=== PATIENT | male | born 1935 | race Hispanic/Latino ===

== ENCOUNTER 2018-12-19 00:54 | Day surgery (SDC) | payer OTHER ==
[2018-12-17 09:38] LABS: BASOPHILS % (AUTO) 0.9 % (0.0-5.0); EOSINOPHILS % (AUTO) 3.8 % (0.0-8.0); HEMATOCRIT 43.2 % (42-54); MEAN CORPUSCULAR HEMOGLOBIN 32.7 pg (27.0-33.0); MEAN CORPUSCULAR HGB CONC 33.3 g/dL (32.0-36.0); MEAN CORPUSCULAR VOLUME 98.2 fL (79-99); NEUTROPHILS % (AUTO) 63.3 % (40.0-77.0); PLATELET COUNT (AUTO) 177 K/uL (130-400); RED CELL DISTRIBUTION WIDTH 13.1 % (11.0-15.5); WHITE BLOOD COUNT (AUTO) 5.9 K/uL (4.8-10.8)
[2018-12-17 09:45] VITALS: BP 117/63
[2018-12-17 09:46] LABS: CREATININE 0.7 mg/dL (0.5-1.5); POTASSIUM 3.7 mmol/L (3.5-5.1)
[2018-12-17 09:48] LABS: INR 1.09 (0.85-1.15); PARTIAL THROMBOPLASTIN TIME 31.3 SEC (26.3-35.5); PROTHROMBIN TIME 11.4 SEC (9.6-11.6)
--- NOTE | 2018-12-17 10:30 | NUR ---
UPDATE GIVEN TO PATIENTS AND DAUGHTER ON PT STILL HAVING PROCEDURE. BOTH VERBALIZED UNDERSTANDING.
[~2018-12-19] VITALS: Ht 162.6 cm; Wt 70.9 kg
[2018-12-19] VITALS (9 sets, daily range): BP systolic 105–122; BP diastolic 53–72
[~2018-12-19 00:54] MED LIST: APIX5TAB PO; ATOR10 PO; CYAN200017 PO; LORA10TA7 PO; LUTE1CAP3 PO; METO50TA18 PO; NITR0.4T50 SL; NONI PO; OMEP20CA10 PO; TAMS0.4C32 PO; [UNRECOGNIZED DRUG - OTHER] PO
[2018-12-19] MEDS ORDERED: SODIUM CHLORIDE 0.9% 1000ML 1,000 ML IV ONE (06:13)
[2018-12-19] MEDS ORDERED: HEPARIN SODIUM 1000UNIT/ML 10ML VIAL ONE (07:25)
[2018-12-19] MEDS ORDERED: LIDOCAINE HCL 2% 20ML ONE (07:25)
--- NOTE | 2018-12-19 07:28 | NUR ---
TO COMMUNICATIONS EDITOR PT TAKEN TO COMMUNICATIONS EDITOR VIA BED BY GIACOMO YANEZ. PT STABLE.
[2018-12-19] MEDS ORDERED: METO50TA18 PO (07:30)
[2018-12-19] MEDS ORDERED: MIDAZOLAM HCL 1 MG/ML 2ML VIAL ONE ×3 (07:56→09:10)
[2018-12-19] MEDS ORDERED: MEPERIDINE-PF 25 MG/ML SYG ONE ×3 (07:56→09:10)
[2018-12-19] MEDS ORDERED: AMIODARONE HCL 50 MG/ML 3 ML VIAL ONE (08:51)
--- NOTE | 2018-12-19 12:00 | NUR ---
NOTE PT AWAKE ALERT. TOLERATING ORAL FLUIDS WELL.
--- NOTE | 2018-12-19 13:00 | NUR ---
DIET PT TOLERATING DIET WELL, ASSISTED BY .
--- NOTE | 2018-12-19 13:15 | NUR ---
ACTIVITY PT ASSISTED TO BATHROOM, AMBULATED WITHOUT ANY PROBLEMS, VOIDED X1. CATH SITE REMAINS SOFT, DRESSING DRY AND INTACT, NO OOZING NO HEMATOMA NOTED.
--- NOTE | 2018-12-19 13:30 | NUR ---
DISCHARGE PT DISCHARGED VIA WHEELCHAIR WITH AND DAUGHTER IN LAW. PT STABLE. NO COMPLAINTS MADE. NOT IN ANY APPARENT DISTRESS. DISCHARGE INSTRUCTIONS GIVEN TO . ALSO DEMONSTRATED TO ON HOW TO MONITOR CATH SITE FOR BLEEDING, HEMATOMA, APPLY DIRECT PRESSURE AND CALL 911. VERBALIZED UNDERSTANDING.
== END 2018-12-19 13:30 | disposition home or self-care (01) ==
LOC: DAH 00:54
PROVIDERS: ATTEND Internal Medicine Cardiovascular Disease
DX: I48.3 Typical atrial flutter (principal); I48.91 Unspecified atrial fibrillation; Z79.82 Long term (current) use of aspirin; Z79.899 Other long term (current) drug therapy; Z98.890 Other specified postprocedural states; I25.10 Atherosclerotic heart disease of native coronary artery without angina pectoris; Z95.1 Presence of aortocoronary bypass graft; Z95.5 Presence of coronary angioplasty implant and graft; G47.33 Obstructive sleep apnea (adult) (pediatric); Z79.01 Long term (current) use of anticoagulants
CPT/HCPCS: 36415; 80048; 85025; 85610; 85730; 93005; 93613; 93621; 93653; A4649; C1730 ×2; C1732; C1894 ×2; J0282; J1644 ×2; J2175 ×3; J2250 ×3; J3490; J7030; 99156; 99157

== ENCOUNTER → 2019-03-31 | Outpatient (CLI) | payer OTHER ==
[~2019-03-31] MED LIST changes: +OMEP-50 PO; -OMEP20CA10 PO
== END | disposition home or self-care (01) ==
LOC: RAH 11:19
PROVIDERS: ATTEND Psychiatry & Neurology Neurology
DX: J32.2 Chronic ethmoidal sinusitis (principal); F03.90 Unspecified dementia, unspecified severity, without behavioral disturbance, psychotic disturbance, mood disturbance, and anxiety; J32.0 Chronic maxillary sinusitis; G31.9 Degenerative disease of nervous system, unspecified; R90.82 White matter disease, unspecified
CPT/HCPCS: 70450

== ENCOUNTER → 2019-10-15 | Outpatient (CLI) | payer OTHER ==
[~2019-10-15] MED LIST changes: -OMEP-50 PO; +OMEP20CA12 PO
== END | disposition home or self-care (01) ==
LOC: SHCH 10:00
PROVIDERS: ATTEND Internal Medicine Cardiovascular Disease
DX: I08.1 Rheumatic disorders of both mitral and tricuspid valves (principal); R06.02 Shortness of breath; R53.83 Other fatigue
CPT/HCPCS: 93306; 93356

== ENCOUNTER → 2023-03-02 | Outpatient (CLI) | payer MEDICARE ==
[~2023-03-02] MED LIST changes: -CYAN200017 PO; +[UNRECOGNIZED DRUG - CODE] PO
[2023-03-02 15:23] LABS: BASOPHILS % (AUTO) 0.5 % (0.0-5.0); EOSINOPHILS % (AUTO) 4.5 % (0.0-8.0); HEMATOCRIT 47.1 % (42-54); LYMPHOCYTES % (AUTO) 28.3 % (21.0-51.0); MEAN CORPUSCULAR HGB CONC 32.9 g/dL (32.0-36.0); MEAN CORPUSCULAR VOLUME 100.2 fL (79-99); MONOCYTES % (AUTO) 8.2 % (3.0-13.0); NEUTROPHILS % (AUTO) 58.1 % (40.0-77.0); PLATELET COUNT (AUTO) 179 K/uL (130-400); RED CELL DISTRIBUTION WIDTH 12.7 % (11.0-15.5); WHITE BLOOD COUNT (AUTO) 9.6 K/uL (4.8-10.8)
[2023-03-02 15:43] LABS: ALBUMIN 3.5 g/dL (3.5-5.0); CREATININE 0.9 mg/dL (0.5-1.5); TOTAL PROTEIN, SERUM 7.1 g/dL (6.0-8.3)
== END | disposition home or self-care (01) ==
LOC: LAB 14:50
PROVIDERS: ATTEND Nurse Practitioner Acute Care
DX: I48.92 Unspecified atrial flutter (principal)
CPT/HCPCS: 36415; 80053; 85025